=== PATIENT | female | born 2000 | race Caucasian/White ===

== ENCOUNTER 2021-01-21 17:38 | Outpatient (CLI) | payer MEDICAID ==
[~2021-01-21] VITALS: Ht 162.6 cm; Wt 112.3 kg
[2021-01-21 17:50] VITALS: BP 129/81
[2021-01-21] MEDS ORDERED: PREN1TAB60 PO (17:50)
== END 2021-01-21 19:40 | disposition home or self-care (01) ==
LOC: LDOP 17:38
PROVIDERS: ATTEND Obstetrics & Gynecology
DX: O26.893 Other specified pregnancy related conditions, third trimester (principal); Z3A.35 35 weeks gestation of pregnancy
CPT/HCPCS: 59025

== ENCOUNTER 2021-02-10 09:46 | Inpatient (IN) | payer MEDICAID ==
[~2021-02-10] VITALS: Ht 162.6 cm; Wt 115.9 kg
[~2021-02-10 09:46] MED LIST: PREN1TAB60 PO
[2021-02-10] MEDS: LACTATED RINGERS 1,000 ML IV SCH (10:50)
[2021-02-10] MEDS ORDERED: NEWBORN KIT ONE (10:56)
[2021-02-10] MEDS ORDERED: D5%-LACTATED RINGERS 1,000 ML IV SCH (11:00)
[2021-02-10] MEDS ORDERED: TERBUTALINE 1 MG/ML, 1ML IVPush PRN (11:00)
[2021-02-10] MEDS ORDERED: CALCIUM CARBONATE 500 MG TAB.CHEW PO PRN (11:00)
[2021-02-10] MEDS ORDERED: SODIUM CITRATE/CITRIC ACID 30 ML UDC PO PRN (11:00)
[2021-02-10] MEDS ORDERED: METOCLOPRAMIDE 5 MG/ML, 2ML IVPush PRN (11:00)
[2021-02-10] MEDS ORDERED: ONDANSETRON 2MG/ML, 2ML IVPush PRN (11:00)
[2021-02-10] MEDS ORDERED: OXYTOCIN 30U/ 0.9% NaCL 500ML 500 ML IV ONE (11:00)
[2021-02-10] MEDS ORDERED: LACTATED RINGERS 1,000 ML IV SCH (11:00)
[2021-02-10] MEDS ORDERED: FENTANYL PF 100 MCG/2ML IVPush PRN (11:00)
[2021-02-10] MEDS ORDERED: TERBUTALINE 1 MG/ML, 1ML SQ PRN (11:00)
[2021-02-10] MEDS ORDERED: FENTANYL PF 100 MCG/2ML IV PRN (11:00)
[2021-02-10] MEDS ORDERED: OXYTOCIN 30U/ 0.9% NaCL 500ML 500 ML IV PRN (11:00)
[2021-02-10 11:31] LABS: BASOPHILS % (AUTO) 0 % (0-1); EOSINOPHILS % (AUTO) 1 % (1-7); LYMPHOCYTES % (AUTO) 12 % (22-44); MEAN CORPUSCULAR HEMOGLOBIN 29.4 pg (27.0-34.8); MEAN CORPUSCULAR HGB CONC 33.5 g/dL (32.4-35.8); MEAN PLATELET VOLUME 9.7 fL (7.4-10.4); MONOCYTES % (AUTO) 8 % (2-9); NEUTROPHILS % (AUTO) 79 % (42-75); PLATELET COUNT 219 x10^3/uL (130-400); RED BLOOD COUNT 4.17 x10^6/uL (3.82-5.3); RED CELL DISTRIBUTION WIDTH 13.9 % (9.6-15.2)
[2021-02-10] MEDS ORDERED: FENTANYL/BUPIV./NS/PF 250 ML EPIDCONT ONE (15:24)
[2021-02-10] MEDS ORDERED: BUPIVACAINE 0.25% ONE (15:25)
[2021-02-10] MEDS ORDERED: EPHEDRINE 50 MG/ML, 1ML IVPush PRN (15:30)
[2021-02-10] MEDS ORDERED: LACTATED RINGERS 1,000 ML IVBOLUS PRN (15:30)
[2021-02-10] MEDS ORDERED: FENTANYL/BUPIV./NS/PF 250 ML EPIDCONT SCH (15:30)
[2021-02-10] MEDS ORDERED: NALOXONE 0.4 MG/ML, 1ML IVPush PRN (15:30)
[2021-02-10] MEDS ORDERED: OXYTOCIN 10 UNITS/ML, 1ML ONE (22:24)
[2021-02-10] MEDS ORDERED: ACETAMINOPHEN 325 MG TABLET PO PRN (23:00)
[2021-02-10] MEDS ORDERED: ONDANSETRON 2MG/ML, 2ML IV PRN (23:00)
[2021-02-10] MEDS ORDERED: SIMETHICONE 80 MG CHEW TAB PO PRN (23:00)
[2021-02-10] MEDS ORDERED: DOCUSATE 100 MG CAPSULE PO PRN (23:00)
[2021-02-10] MEDS ORDERED: IBUPROFEN 600 MG TABLET PO PRN (23:00)
[2021-02-10] MEDS ORDERED: OXYTOCIN 10 UNITS/ML, 1ML IM PRN (23:00)
[2021-02-10] MEDS ORDERED: MISOPROSTOL 200 MCG TABLET PR PRN (23:00)
[2021-02-10] MEDS ORDERED: OXYcodone/APAP 5/325MG TABLET PO PRN (23:00)
[2021-02-11 01:15] VITALS: BP 121/77
[2021-02-11] MEDS: OXYTOCIN 30U/ 0.9% NaCL 500ML 500 ML IV SCH ×3 (01:56→19:00)
[2021-02-11] MEDS: LACTATED RINGERS 1,000 ML IV SCH ×4 (01:57→23:30)
[2021-02-11 06:00] VITALS: BP 121/75
[2021-02-11 07:10] VITALS: BP 112/70
[2021-02-11 07:34] LABS: BASOPHILS % (AUTO) 0 % (0-1); EOSINOPHILS % (AUTO) 1 % (1-7); LYMPHOCYTES % (AUTO) 10 % (22-44); MEAN CORPUSCULAR HEMOGLOBIN 29.8 pg (27.0-34.8); MEAN CORPUSCULAR HGB CONC 33.5 g/dL (32.4-35.8); MEAN PLATELET VOLUME 10.3 fL (7.4-10.4); MONOCYTES % (AUTO) 7 % (2-9); NEUTROPHILS % (AUTO) 82 % (42-75); PLATELET COUNT 214 x10^3/uL (130-400); RED BLOOD COUNT 3.86 x10^6/uL (3.82-5.3); RED CELL DISTRIBUTION WIDTH 13.5 % (9.6-15.2)
[2021-02-11] MEDS: PRENATAL VIT/IRON/FA 1 EACH TABLET PO SCH (10:22)
[2021-02-11 12:20] VITALS: BP 113/60
[2021-02-11 16:05] VITALS: BP 116/77
[2021-02-11 19:15] VITALS: BP 112/75
[2021-02-12] MEDS: OXYTOCIN 30U/ 0.9% NaCL 500ML 500 ML IV SCH ×2 (05:00→15:00)
[2021-02-12] MEDS: LACTATED RINGERS 1,000 ML IV SCH (07:30)
[2021-02-12] MEDS: PRENATAL VIT/IRON/FA 1 EACH TABLET PO SCH (08:40)
[2021-02-12 10:15] VITALS: BP 120/81
[2021-02-12] MEDS ORDERED: IBUP-1222 PO (13:50)
[2021-02-12] MEDS ORDERED: ACET325C6 PO (13:54)
[2021-02-12] MEDS ORDERED: DOCU-131 PO (13:55)
[2021-02-12] MEDS ORDERED: [UNRECOGNIZED DRUG - CODE] PO (13:55)
[2021-02-12] MEDS ORDERED: SIME80TA16 PO (13:56)
== END 2021-02-12 15:00 | disposition home or self-care (01) | DRG 560 ==
LOC: LDOP 09:46 → LDIP 10:38 → 2NW 02-11 00:50
PROVIDERS: ADMIT Obstetrics & Gynecology; ATTEND Obstetrics & Gynecology
PROC: 10E0XZZ Delivery of Products of Conception, External Approach (ICD-10-PCS; principal; 2021-02-10)
PROC: 0HQ9XZZ Repair Perineum Skin, External Approach (ICD-10-PCS; 2021-02-10)
PROC: 3E0R3BZ Introduction of Anesthetic Agent into Spinal Canal, Percutaneous Approach (ICD-10-PCS; 2021-02-10)
PROC: 00HU33Z Insertion of Infusion Device into Spinal Canal, Percutaneous Approach (ICD-10-PCS; 2021-02-10)
DX: O99.814 Abnormal glucose complicating childbirth (principal); Z37.0 Single live birth; E74.39 Other disorders of intestinal carbohydrate absorption; Z3A.38 38 weeks gestation of pregnancy; Z20.822 Contact with and (suspected) exposure to COVID-19; O70.0 First degree perineal laceration during delivery
CPT/HCPCS: 36415; J7121; 84112; 85025; 86592; 86850; 86900; 87635; G0378; J2590; J3010; J7120